=== PATIENT | male | born 1940 | race African-American/Black ===

== ENCOUNTER 2018-11-26 18:00 | Emergency (ER) | payer OTHER ==
[~2018-11-26] VITALS: Ht 188 cm; Wt 97.5 kg
[2018-11-26] MEDS ORDERED: GLIPIZIDE10 MG (18:09)
[2018-11-26] MEDS ORDERED: AVAPRO300 MG (18:14)
[2018-11-26] MEDS ORDERED: NORVASC10 MG (18:14)
[2018-11-26] MEDS ORDERED: TOPROL XL50 M1 (18:15)
[2018-11-26] MEDS ORDERED: HYDROCHLOROTHIA25 MG (18:15)
[2018-11-26] MEDS ORDERED: ATORVASTATIN CA40 MG (18:15)
== END 2018-11-26 22:03 | disposition home or self-care (01) ==
LOC: ER 18:00
DX: E11.65 Type 2 diabetes mellitus with hyperglycemia (principal); B33.8 Other specified viral diseases

== ENCOUNTER 2020-04-11 12:01 | Emergency (ER) | payer OTHER ==
[~2020-04-11] VITALS: Ht 167.6 cm; Wt 97.1 kg
[~2020-04-11 12:01] MED LIST: ATORVASTATIN CA40 MG; AVAPRO300 MG; GLIPIZIDE10 MG; HYDROCHLOROTHIA25 MG; NORVASC10 MG; TOPROL XL50 M1
[2020-04-11] MEDS ORDERED: ORPHENADRINE C100 MG PO (14:14)
[2020-04-11] MEDS ORDERED: ULTRACET PO (14:14)
== END 2020-04-11 14:10 | disposition home or self-care (01) ==
LOC: ER 12:01
DX: M54.5 Low back pain (principal); M62.838 Other muscle spasm